=== PATIENT | male | born 1970 | race Caucasian/White ===

== ENCOUNTER 2022-05-04 20:59 | Emergency (ER) | payer BC, SELFPAY ==
[2022-05-04 21:18] VITALS: BP 118/77; PULSE 84; RESP 16; TEMP 36.9; O2SAT 100; BMI 28.2
--- NOTE | 2022-05-04 21:41 | XRR_ITS ---
PROCEDURE INFORMATION: Exam: XR Left Foot Exam date and time: 05/04/2022 9:50 PM Age: 51 years old Clinical indication: Injury or trauma; Swelling (edema); Foot; Left; Injury details: Fall today; Per PT HX of plantar fascitis; Pain across metatarsals 2,3,4 TECHNIQUE: Imaging protocol: Radiologic exam of the Left foot. Views: 3 or more views. COMPARISON: No relevant prior studies available. FINDINGS: Bones/joints: Normal. Soft tissues: Normal. XR/XR foot LT min 3V* [id number] IMPRESSION: No acute findings.
--- NOTE | 2022-05-04 22:12 | ED_ITS ---
HPI - Extremity Problem General: Chief complaint: Extremity Injury, Lower Stated complaint: Injury Left Foot Time Seen by Provider: 05/04/22 21:35 Source: patient and family History of Present Illness: 51-year-old gentleman who slipped on wet floor at home. He fell. He did not notice striking his foot at the time, but over the course of an hour or 2, developed midfoot pain and swelling that is significant on the left. He is having trouble bearing weight. No ankle pain. Said some numbness in his toes related to the swelling, although the the numbness is incomplete MD Complaint: joint swelling and joint pain Onset (ago): hour(s) Pain Consistency: constant Location: left and lower extremity Quality: aching Radiation: none Relieving factors: immobilization Exacerbating factors: weight bearing Associated symptoms: Deny chest pain, fever(s) or short of breath Review of Systems Const: Denies: fever(s) Card: Denies: chest pain GI: Denies: abdominal pain Physical Exam Const: GENERAL APPEARANCE: cooperative; not ill appearing HENMT: COMMON NORMALS: normocephalic, atraumatic and Normal external nose present HEAD & SCALP: normocephalic and atraumatic NOSE: Normal external nose present Eye: COMMON NORMALS: Equal, round and reactive pupils present and EOMs intact bilaterally PUPIL: Yes Equal, round and reactive pupils present Neck/C-Spine: GENERAL: Yes trachea midline Chest: CHEST: Yes Symmetrical chest wall rise Resp: COMMON NORMALS: normal respiratory effort, No use of accessory muscles and clear to auscultation bilaterally AUSCULTATION: clear to auscultation bilaterally Cardio: COMMON NORMALS: regular rate and regular rhythm RATE: regular rate RHYTHM: regular rhythm Extremity: NARRATIVE EXTREMITY EXAM: Examination left foot reveals mild swelling over the dorsum of the midfoot. There is tenderness along the midfoot, at Lisfranc's joint. There is similar tenderness at the midfoot from plantar surface. No calcaneal pain. No deformity of the foot sensation is grossly intact. Capillary refill is normal Neuro: [place] COMA SCALE: document GCS findings [place] coma scale eye opening: Spontaneous [place] coma scale verbal response: Orientated [place] coma scale motor response: Obey commands [place] coma scale total score: 15 Course Vital Signs: Vital signs: Vital Signs Temperature 98.4 F 05/04/22 21:18 Pulse Rate 84 05/04/22 21:18 Respiratory Rate 16 05/04/22 21:18 Blood Pressure 118/77 05/04/22 21:18 Pulse Oximetry 100 05/04/22 21:18 Oxygen Delivery Me thod 05/04/22 21:18 MDM - Extremity (Nontraumatic) Medical Decision Making No fracture noted on x-ray. There are some soft tissue swelling. Area of tenderness is concerning, as it is over Lisfranc's joint. He could have sprained his Lisfranc joint quite easily with this injury. He will be placed in an Ian wrap and crutches for nonweightbearing. We will get him a fracture boot on Friday. He will follow-up with foot and ankle surgery. Lab Data Radiology Impressions Foot X-Ray 05/04/22 21:41 IMPRESSION: No acute findings. Discharge Plan Discharge Patient Disposition: Home Clinical Impression: Lisfranc's sprain Condition: Stable Prescriptions: New hydrocodone-acetaminophen 5-325 mg tablet 1 tab PO Q8H PRN (Reason: pain) Qty: 7 0RF Discharge Orders: Discharge ED (Routine); Ordered 05/04/22 Ordered By: Fernando Dailey Patient Instructions: Foot Sprain (ED), Opioid Safety Activity Restrictions/Additional Instructions: A fracture boot has been ordered for you. You must take this order to a medical equipment store to get fitted on Friday. Until that time, use crutches for weightbearing. You may bear weight in the fracture boot only until cleared by foot and ankle surgery. Call them on Friday for an appointment this coming week. Ice for pain and swelling. Stand Alone Forms: Work/School Release Coding Level of Care Code ED Assistance Coordinator for Jossy Fwd Exam Comprehensive
[2022-05-04] MEDS: oxyCODONE-APAP 5-325 mg Tablet 2 TAB PO (23:04)
--- NOTE | 2022-05-04 23:08 | PC.NURSE ---
I was able to get the patient a walking boot from the supply room. Pt. received crutches and walking boot.
== END 2022-05-04 23:13 | disposition home or self-care (01) ==
PROVIDERS: Emergency Provider Emergency Medicine
DX: S93.692A Other sprain of left foot, initial encounter (principal); W01.0XXA Fall on same level from slipping, tripping and stumbling without subsequent striking against object, initial encounter
CPT/HCPCS: 73630; 99283; E0114

== ENCOUNTER 2024-04-17 21:27 | Emergency (ER) | payer OTHER, SELFPAY ==
[2024-04-17 21:35] VITALS: BP 133/75; PULSE 82; RESP 17; TEMP 36.4; O2SAT 99; BMI 30.5
[2024-04-17 22:09] VITALS: BP 111/81; PULSE 76; RESP 16; O2SAT 99
--- NOTE | 2024-04-17 22:16 | W.ED.SKABFB ---
HPI - Skin/Abscess/Foreign Bdy General: Chief complaint: Skin/Abscess/Foreign Body Stated complaint: some kind of bite on left foot Time Seen by Provider: 04/17/24 21:42 Source: patient and family Mode of arrival: ambulatory Limitations: no limitations History of Present Illness: Patient is a nice 53-year-old male presents to ED today along with presumably his for concerns of a lesion to his left foot just earlier today. Patient states he felt something itching to the bottom of his foot so he visualized the area and noticed a swollen red spot. They were concerned for a possible spider bite. States they want to be overly cautious as patient has an upcoming liver surgery. complaint: lesion Onset (ago): hour(s) Tetanus up to date: yes Location: L foot Severity: mild Quality: pruritic Relieving factors: none Exacerbating factors: none Context: none Associated symptoms: Reports no associated symptoms; Deny fever(s) Treatments prior to arrival: none Review of Systems Const: Denies: fever(s) Musc: Denies: extremity pain, joint pain, joint swelling, joint redness or joint warmth Skin/Breast: Reports: other (reports redness/swelling to bottom of L foot) Physical Exam Const: COMMON NORMALS: no acute distress, average body habitus, patient oriented x3, no limitations, alert and well nourished Extremity: COMMON NORMALS: full ROM, capillary refill normal, no joint enlargement, no clubbing, cyanosis or edema, no calf tenderness and no pedal edema GENERAL: Yes normal exam except as noted LEFT LOWER EXTREMITY: Yes foot & digits Left foot and digits: Yes palpation (normal), Yes ROM (normal) and Yes neurovascular exam (normal) OTHER: maybe a very faint area of redness to plantar mid foot but otherwise completely normal examination; was able to look at foot as well and states the swelling has completely subsided from earlier and agrees that redness is almost fully gone as well no breaks in skin, bites, abrasions, puncture wounds noted Neuro: COMMON NORMALS: patient oriented x3, moves all extremities, no focal motor deficits and no sensory deficits noted SENSORIUM/ORIENTATION: Yes alert Skin: NARRATIVE SKIN EXAM: see above Course Vital Signs: Vital signs: Vital Signs Temperature 97.6 F 04/17/24 22:25 Pulse Rate 76 04/17/24 22:25 Respiratory Rate 16 04/17/24 22:25 Blood Pressure 111/81 04/17/24 22:25 Pulse Oximetry 99 04/17/24 22:25 Oxygen Delivery Me thod Room Air 04/17/24 22:09 MDM - Skin/Abscess/Foreign Bdy Medicial Decision Making Redness and swelling is almost completely subsided from when patient and his noticed it earlier. At this time there is nothing to suggest a bite or puncture. Patient is cleared for discharge. Recommend continuing to watch foot closely. Return ED precautions given. Medical Records I reviewed the patient's medical records. No radiology studies performed this visit Discharge Plan Discharge Patient Disposition: Home Clinical Impression: Worried well Condition: Stable Prescriptions: No Action hydrocodone-acetaminophen 5-325 mg tablet 1 tab PO Q8H PRN (Reason: pain) Qty: 7 0RF Discharge Orders: Discharge ED (Routine); Ordered 04/17/24 Ordered By: Ely Engle Referrals: America Felix FNP [Primary Care Provider] - Patient Instructions: Opioid Safety, Pain Management Activity Restrictions/Additional Instructions: As we discussed, I do not visualize much abnormality regarding the plantar aspect of your left foot today. Continue to monitor symptoms closely. You may seek medical reevaluation for the recurrence of swelling, pain, redness, warmth, or any other concerns you may have. Coding Level of Care Code ED Graining Machine Operator for Jossy Morgan
[2024-04-17 22:25] VITALS: BP 111/81; PULSE 76; RESP 16; TEMP 36.4; O2SAT 99
== END 2024-04-17 22:32 | disposition home or self-care (01) ==
PROVIDERS: Emergency Provider Physician Assistant; PCP Nurse Practitioner
DX: Z03.89 Encounter for observation for other suspected diseases and conditions ruled out (principal)
CPT/HCPCS: 99281